=== PATIENT | female | born 1975 | race American Indian/Alaskan Native ===

== ENCOUNTER 2016-05-11 11:40 | Outpatient (CLI) | payer BC ==
--- NOTE | 2016-05-11 12:44 | XRay Report ---
ROUTINE CHEST, TWO VIEWS: HISTORY: Cough. The trachea, heart, mediastinal contour, lung solorio and bony thorax are unremarkable. IMPRESSION: Unremarkable chest x-ray.
--- NOTE | 2016-05-11 12:44 | XRay Report ---
ABDOMEN, 2 views: History: Abdominal pain. There is no evidence of free air beneath the diaphragms. The gas pattern within the abdomen is unremarkable. There is no evidence of bowel dilatation, significant air-fluid levels, or pathologic calcifications. Organ shadows are unremarkable. IMPRESSION: Unremarkable abdomen.
== END 2016-05-11 11:41 | disposition home or self-care (01) ==
LOC: SPVIMAG 11:40
PROVIDERS: ATTEND Family Medicine Adult Medicine
DX: R07.9 Chest pain, unspecified (principal)
CPT/HCPCS: 71020; 74020

== ENCOUNTER 2016-05-12 09:08 | Outpatient (CLI) | payer BC ==
--- NOTE | 2016-05-12 15:00 | Ultrasound Report ---
Abdominal ultrasound. Findings: The abdominal aorta is normal. The liver is normal in size and configuration with no focal abnormalities. There are multiple gallstones. The wall of the gallbladder does not appear thickened. The common bile duct measures 4.4 mm in diameter. The spleen and pancreas appear normal. The right kidney is normal. The left kidney is normal in size and configuration. There is an echogenic focus within the central left kidney measuring 6 mm in diameter. This may represent a stone. There is mild comments of the calyceal system. Impression: Possible left nephrolithiasis with mild hydronephrosis.
== END 2016-05-12 09:09 | disposition home or self-care (01) ==
LOC: US 09:08
PROVIDERS: ATTEND Family Medicine Adult Medicine
DX: K80.20 Calculus of gallbladder without cholecystitis without obstruction (principal)
CPT/HCPCS: 76700